=== PATIENT | female | born 1985 | race Caucasian/White ===

== ENCOUNTER 2017-08-10 21:58 | Emergency (ER) | payer SELFPAY, BC ==
[2017-08-10 23:12] LABS: ADD UMIC NO; UR ASCORBIC ACID NEGATIVE (NEGATIVE); UR BACTERIA FEW /HPF (NONE SEEN); UR BILIRUBIN (Dip) NEGATIVE (NEGATIVE); UR BLOOD (Dip) NEGATIVE (NEGATIVE); UR CLARITY SLIGHTLY CLOUDY (CLEAR); UR COLOR YELLOW (YELLOW); UR GLUCOSE (Dip) NEGATIVE (NEGATIVE); UR KETONES (Dip) NEGATIVE (NEGATIVE); UR LEUKOCYTE ESTERASE (Dip) NEGATIVE Leu/ul (NEGATIVE); UR NITRITE (Dip) NEGATIVE (NEGATIVE); UR RBC 1 /HPF (0-5); UR SPECIFIC GRAVITY (Dip) 1.018 (1.003-1.030); UR SQUAMOUS EPITHELIAL CELL FEW /HPF (FEW); UR TOTAL PROTEIN (Dip) NEGATIVE (NEGATIVE); UR UROBILINOGEN (Dip) 1+ mg/dL (NEGATIVE); UR WBC 3 /HPF (0-5)
[2017-08-10] MEDS: OSELTAMIVIR 75 MG CAP PO (23:38)
== END 2017-08-11 00:06 | disposition home or self-care (01) ==
LOC: FTE 21:58
DX: O99.512 Diseases of the respiratory system complicating pregnancy, second trimester (principal); J10.1 Influenza due to other identified influenza virus with other respiratory manifestations; R50.9 Fever, unspecified; Z3A.20 20 weeks gestation of pregnancy
CPT/HCPCS: 76805; 81001; 81003; 87400; 99284-25

== ENCOUNTER 2017-12-25 23:40 | Inpatient (IN) | payer OTHER ==
[2017-12-26 02:02] LABS: ADD UMIC YES; UR AMORPHOUS CRYSTAL FEW /HPF (NONE SEEN); UR ASCORBIC ACID NEGATIVE (NEGATIVE); UR BACTERIA FEW /HPF (NONE SEEN); UR BILIRUBIN (Dip) NEGATIVE (NEGATIVE); UR BLOOD (Dip) 2+ mg/dL (NEGATIVE); UR CALCIUM OXALATE CRYSTAL FEW /HPF (NONE SEEN); UR CLARITY TURBID (CLEAR); UR COLOR AMBER (YELLOW); UR GLUCOSE (Dip) NEGATIVE (NEGATIVE); UR KETONES (Dip) NEGATIVE (NEGATIVE); UR LEUKOCYTE ESTERASE (Dip) 3+ Leu/ul (NEGATIVE); UR MUCUS MODERATE /HPF (NONE SEEN); UR NITRITE (Dip) NEGATIVE (NEGATIVE); UR RBC 8 /HPF (0-5); UR SQUAMOUS EPITHELIAL CELL MANY /HPF (FEW); UR TOTAL PROTEIN (Dip) 1+ mg/dl (NEGATIVE); UR UROBILINOGEN (Dip) NEGATIVE (NEGATIVE); UR WBC 44 /HPF (0-5)
[2017-12-26] MEDS ORDERED: BUTORPHANOL 2 MG INJ IV (03:30)
[2017-12-26] MEDS ORDERED: AMPICILLIN 2 GM/NS (PMX) 100 ML IV (03:30)
[2017-12-26] MEDS ORDERED: LIDOCAINE 1% (MPF) 30 ML INJ INJ (03:30)
[2017-12-26] MEDS ORDERED: MISOPROSTOL 200 MCG TAB PR ×2 (03:30→23:00)
[2017-12-26] MEDS ORDERED: OXYTOCIN 30 UNITS/LR 500 ML IV ×2 (03:30→23:00)
[2017-12-26] MEDS ORDERED: METHYLERGONOVINE 0.2 MG INJ IM ×2 (03:30→23:00)
[2017-12-26] MEDS ORDERED: CARBOPROST 250 MCG INJ IM ×2 (03:30→23:00)
[2017-12-26] MEDS ORDERED: IBUPROFEN 600 MG TAB PO (03:30)
[2017-12-26] MEDS: LACTATED RINGER'S 1,000 ML IV* ×5 (05:51→22:44)
[2017-12-26 06:51] LABS: ADD MAN DIFF? NO
[2017-12-26 07:09] LABS: WHITE BLOOD COUNT 7.8 10^3/ul (4.8-10.8)
[2017-12-26 07:09] LABS: BASOPHILS % 0.3 % (0.0-2.0); EOSINOPHILS # 0.1 10^3/ul (0.0-0.5); EOSINOPHILS % 1.7 % (0.0-7.0); HEMATOCRIT 32.3 % (37.0-47.0); HEMOGLOBIN 10.7 g/dl (12.0-16.0); LYMPHOCYTES # 2.3 10^3/ul (0.8-2.9); LYMPHOCYTES % 29.6 % (15.0-51.0); MEAN CORPUSCULAR HEMOGLOBIN 30.5 pg (29.0-33.0); MEAN CORPUSCULAR HGB CONC 33.1 g/dl (32.0-37.0); MEAN PLATELET VOLUME 10.4 fl (7.4-10.4); MONOCYTE # 0.6 10^3/ul (0.3-0.9); MONOCYTES % 7.7 % (0.0-11.0); NEUTROPHIL # 4.8 10^3/ul (1.6-7.5); NEUTROPHILS % 60.6 % (39.0-77.0); PLATELET COUNT 182 10^3/UL (140-415); RED BLOOD COUNT 3.51 10^6/ul (4.20-5.40); RED CELL DISTRIBUTION WIDTH 14.1 % (11.5-14.5)
[2017-12-26 07:16] LABS: PARTIAL THROMBOPLASTIN TIME 29.7 Sec (25.0-35.0); PROTIME 12.2 Sec (11.9-14.9)
[2017-12-26] MEDS ORDERED: AMPICILLIN 1 GM/NS (PMX) 50 ML IV (07:30)
[2017-12-26 07:48] LABS: HEPATITIS B SURFACE ANTIGEN NEGATIVE (NEGATIVE)
[2017-12-26] MEDS: AMPICILLIN 2 GM/NS (PMX) 100 ML IVPB (10:05)
[2017-12-26] MEDS: OXYTOCIN 30 UNITS/LR 500 ML IV ×3 (10:50→21:14)
[2017-12-26] MEDS ORDERED: FENTAnyl 2MCG/ML-ROPIV 0.2% 100 ML (12:13)
[2017-12-26] MEDS: AMPICILLIN 1 GM/NS (PMX) 50 ML IV ×3 (13:46→20:00)
[2017-12-26] MEDS ORDERED: NALOXONE (0.4 MG/ML) INJ IV (20:00)
[2017-12-26] MEDS: FENTAnyl 2MCG/ML-ROPIV 0.2% 100 ML BAG EPI (20:35)
[2017-12-26 20:59] LABS: RAPID PLASMA REAGIN NONREACTIVE (NR)
[2017-12-26] MEDS ORDERED: DIPHENHYDRAMINE 25 MG CAP PO (23:00)
[2017-12-26] MEDS ORDERED: ZOLPIDEM 5 MG TAB PO (23:00)
[2017-12-26] MEDS ORDERED: BENZOCAINE 20% 56 ML SPRAY TOP (23:00)
[2017-12-26] MEDS ORDERED: LANOLIN 7 GM TUBE TOP (23:00)
[2017-12-26] MEDS ORDERED: ACETAMINOPHEN 325 MG TAB PO (23:00)
[2017-12-26] MEDS ORDERED: HYDROCODONE/APAP (5/325) TAB PO (23:00)
[2017-12-26] MEDS ORDERED: MAGNESIUM HYDROXIDE 30ML CUP PO (23:00)
[2017-12-26] MEDS ORDERED: WITCH HAZEL/GLYCERIN PAD PR (23:00)
[2017-12-26] MEDS: IBUPROFEN 800 MG TAB PO (23:37)
[2017-12-27] MEDS: OXYTOCIN 30 UNITS/LR 500 ML IV (00:37)
[2017-12-27] MEDS: IBUPROFEN 800 MG TAB PO ×4 (05:27→23:44)
[2017-12-27] MEDS: LACTATED RINGER'S 1,000 ML IV* ×2 (06:44→14:44)
[2017-12-27 07:44] LABS: ADD MAN DIFF? NO
[2017-12-27 07:49] LABS: WHITE BLOOD COUNT 11.8 10^3/ul (4.8-10.8)
[2017-12-27 07:49] LABS: BASOPHILS % 0.2 % (0.0-2.0); EOSINOPHILS # 0.1 10^3/ul (0.0-0.5); EOSINOPHILS % 0.7 % (0.0-7.0); HEMATOCRIT 30.9 % (37.0-47.0); HEMOGLOBIN 10.4 g/dl (12.0-16.0); LYMPHOCYTES # 2.2 10^3/ul (0.8-2.9); LYMPHOCYTES % 18.3 % (15.0-51.0); MEAN CORPUSCULAR HEMOGLOBIN 30.9 pg (29.0-33.0); MEAN CORPUSCULAR HGB CONC 33.7 g/dl (32.0-37.0); MEAN CORPUSCULAR VOLUME 91.7 fl (82.0-101.0); MEAN PLATELET VOLUME 10.1 fl (7.4-10.4); MONOCYTE # 1.2 10^3/ul (0.3-0.9); MONOCYTES % 9.9 % (0.0-11.0); NEUTROPHIL # 8.3 10^3/ul (1.6-7.5); NEUTROPHILS % 70.6 % (39.0-77.0); PLATELET COUNT 151 10^3/UL (140-415); RED BLOOD COUNT 3.37 10^6/ul (4.20-5.40); RED CELL DISTRIBUTION WIDTH 14.1 % (11.5-14.5)
[2017-12-27] MEDS: MEASLES,MUMPS,RUBELLA VACCINE INJ SC* (15:57)
[2017-12-27] MEDS: VARICELLA VACCINE LIVE/PF 1,350 UNIT/0.5 ML ML SC* (15:57)
[2017-12-27] MEDS: SENNA/DOCUSATE NA (8.6MG/50MG) TAB PO (21:39)
[2017-12-28] MEDS: IBUPROFEN 800 MG TAB PO ×2 (05:36→11:38)
[2017-12-28] MEDS: DIPHTH/TET/ACEL PERTUSS (ADULT) 0.5 ML VIAL IM* (11:55)
== END 2017-12-28 14:35 | disposition home or self-care (01) | DRG 775 ==
LOC: OBT 23:40 → L-D 12-26 03:15 → PP1 12-26 22:28 → L-D 23:40
PROC: 10E0XZZ Delivery of Products of Conception, External Approach (ICD-10-PCS; principal; 2017-12-26)
DX: O80 Encounter for full-term uncomplicated delivery (principal); Z3A.38 38 weeks gestation of pregnancy; Z37.0 Single live birth
CPT/HCPCS: 62319; 76815; 76818; 81001; 85025; 85610; 85730; 86592; 86850; 86900; 86901; 87340; 90715

== ENCOUNTER 2018-10-22 17:50 | Emergency (ER) | payer OTHER | END 2018-10-22 19:18 | disposition home or self-care (01) | LOC: FTE 19:18 | DX: L42 Pityriasis rosea (principal) | CPT/HCPCS: 99283; Z7502 ==